=== PATIENT | male | born 1955 ===

== ENCOUNTER 2024-07-18 06:55 | Emergency (ER) | payer MEDICARE, SELFPAY ==
--- NOTE | ~2024-07-18 | XR_ITS ---
Clinical Indication: Chest pain, shortness of breath PA and lateral views of the chest: Comparison: None Findings: The lungs are clear, without evidence of focal consolidation or pleural effusion. Cardiome diastinal silhouette is within normal limits. Bones and soft tissues are unremarkable, aside from cer vical spine fixation hardware. Impression: Clear lungs. Reviewed, dictated and finalized at location . Impression: Clear lungs.
--- NOTE | 2024-07-18 06:57 | ECG_ITS ---
Test Date: 2024-07-18 09:42:47 Measurements Intervals [facility] Rate: 44 P: 37 MN: 172 QRS: 46 QRSD: 92 T: 40 QT: 440 QTc: 378 Interpretive Statements SINUS BRADYCARDIA OTHERWISE NORMAL ELECTROCARDIOGRAM Compared to ECG 07/18/2024 07:02:52 No significant changes Electronically Signed On 07-19-2024 07:19:26 CDT by Milton Finch M.D.
[2024-07-18 07:07] VITALS: BP 136/53; PULSE 52; RESP 15; TEMP 36.5; O2SAT 99
[2024-07-18 07:20] LABS: Basophils Percent Auto 0.5 % (0.2-1.2); Eosinophils Absolute Auto 0.3 K/mm3 (0-0.3); Eosinophils Percent Auto 3.8 % (0-4.4); Hematocrit 39.7 % (42.0-52.0); Hemoglobin 13.2 g/dL (14.0-18.0); Immature Granulocyte Absolute 0.03 K/mm3 (0.00-0.031); Immature Granulocyte Percent A 0.3 % (0-0.5); Lymphocytes Percent Auto 19.8 % (18.3-44.2); Mean Corpuscular HGB Conc 33.2 g/dl (32-36); Mean Corpuscular Hemoglobin 29.8 pg (26-34); Mean Corpuscular Volume 89.6 fl (80-100); Mean Platelet Volume 9.1 fl (7.4-10.4); Monocytes Absolute Auto 0.9 K/mm3 (0.1-0.6); Monocytes Percent Auto 10.1 % (2.6-8.5); Neutrophils Absolute Auto 5.6 K/mm3 (1.3-6.7); Neutrophils Percent Auto 65.5 % (45.5-73.1); Platelet Count Result 228 k/mm3 (150-375); Red Blood Count 4.43 M/mm3 (4.6-6.20); Red Cell Distribution Width 13.1 % (11.5-14.5); White Blood Count 8.6 K/mm3 (4.5-10.0)
[2024-07-18 07:31] LABS: Alanine Aminotransferase 13 U/L (6-50); Albumin Level 4.4 g/dL (3.5-5.1); Alkaline Phosphatase 56 U/L (38-126); Anion Gap 11 mmol/L (4-12); Aspartate Amino Transferase 21 U/L (17-59); Bilirubin,Total 0.9 mg/dL (0.2-1.3); Blood Urea Nitrogen 21 mg/dL (9-20); Calcium 9.1 mg/dL (8.4-10.2); Carbon Dioxide 31 mmol/L (22-30); Chloride 97 mmol/L (98-107); Estimated CRCL calculation 32 ml/min; Estimated Glomerular Filt Rate 47; Glucose 137 mg/dL (65-110); Lipase 107 U/L (23-300); Potassium 3.4 mmol/L (3.4-5.0); Sodium 139 mmol/L (137-145)
[2024-07-18 07:32] LABS: INR 1.1; Partial Thromboplastin Time 32.8 Seconds (22.3-36.8); Prothrombin Time 14.8 Seconds (11.1-14.7)
[2024-07-18 07:42] LABS: Troponin I < 0.012 ng/mL (0.000-0.034)
[2024-07-18] MEDS: ASPIRIN 81 MG CHEWABLE TABLET 324 MG PO (07:58)
[2024-07-18 08:32] VITALS: O2SAT 99
[2024-07-18 08:35] VITALS: BP 133/78; PULSE 55; RESP 13; TEMP 36.8; O2SAT 99
--- NOTE | 2024-07-18 08:38 | ED.CHESTPAIN ---
HPI - Chest Pain General Chief Complaint: Chest Pain Stated Complaint: chest pain Time Seen by Provider: 07/18/24 08:09 History of Present Illness HPI narrative: This is a 68-year-old male with a past medical history significant for hypertension who presents to the ED for evaluation of chest pain radiating to his back. Patient states that about 5:00 a.m. this morning when he has to do his normal activities in the morning he suddenly had some pain in his center of his chest that began radiating towards his back. Describes as a sharp pain but feels like the chest and back pain are in 2 separate locations. Pain did not immediately subsided and he wanted to be evaluated. Aside from feeling slightly dizzy with a sensation that he might pass out after this and chest pain was onset he denies any symptoms such as vision changes, headache, neck pain, nausea, vomiting, shortness of breath, abdominal pain, neuropathy or weakness. He was otherwise normal normal state of health without any changes to his medications or diet habits recently. No trauma associated with this and no recent illnesses. Related Data Allergies Allergy/AdvReac Type Severity Reaction Status Date / Time amlodipine Allergy Unknown flank pain Verified 07/18/24 08:42 atorvastatin [From Lipitor] Allergy flank pain Verified 07/18/24 08:42 Review of Systems Review of Systems: As reviewed above in the HPI [facility] Family History Family History Father Family history of anemia Cerebrovascular accident Family history of hearing loss Mother Family history of anemia Family history of arthritis Family history of Alzheimer's disease Family history of hearing loss Social History Social History Smoking status: Never smoker Alcohol intake: never Exam Narrative: GENERAL: [Well-appearing, well-nourished, and in no acute distress.] HEAD: [Normocephalic, atraumatic.] EYES: [PERRLA and EOMI.] ENT: Nares clear, no rhinorrhea or epistaxis. Mucous membranes moist. NECK: Supple. CHEST: [Clear to auscultation. No respiratory distress.] HEART: [Regular rate and rhythm]. No murmur heard. [Normal peripheral pulses.] ABDOMEN: [Soft, nondistended], [nontender], [No rigidity or guarding] EXTREMITIES: Normal range of motion. [No edema.] SKIN: Warm, dry, no rash. NEURO: [No focal deficits]. Alert and oriented [x3.] PSYCH: [Normal mood and affect.] Course Vital Signs Vital signs: Vital Signs Temperature 36.5 C 07/18/24 07:07 Pulse Rate 52 L 07/18/24 07:07 Respiratory Rate 15 07/18/24 07:07 Blood Pressure 136/53 L 07/18/24 07:07 Pulse Oximetry 99 07/18/24 07:07 Oxygen Delivery Room Air 07/18/24 07:07 Temperature 36.8 C 07/18/24 08:35 Pulse Rate 45 L 07/18/24 12:16 Respiratory Rate 16 07/18/24 12:16 Blood Pressure 118/59 L 07/18/24 12:16 Pulse Oximetry 100 07/18/24 12:16 Oxygen Delivery Room Air 07/18/24 08:32 MDM - Chest Pain MDM Narrative Medical decision making narrative: This is a 68-year-old male with history of hypertension who presents to the ED for evaluation of chest pain onset 3 hours prior to arrival. Chest pain was present upon awakening from sleep this morning and had some associated back discomfort as well. No associated difficulty breathing, nausea, vomiting, neuropathy or other complaints. Examination is very reassuring his well-appearing in any acute distress with symmetric pulses and normal neurological assessment. Differential diagnosis at this time includes musculoskeletal chest and back pain, less likely ACS or aortic syndrome. Low suspicion infectious etiology such as pneumonia or upper respiratory infection. Workup was ordered including serial troponins given the timeline of his events, CBC, chest x-ray, EKG, D-dimer to assess for any thrombotic process or aortic process. EKG o
[2024-07-18] MEDS: MORPHINE SULFATE (*CRX) 4 MG/ML INJ IV PUSH (09:23)
[2024-07-18] MEDS: LACTATED RINGERS 1,000 ML 999 ML IV CONT (09:25)
--- NOTE | 2024-07-18 09:41 | ECG_ITS ---
Test Date: 2024-07-18 07:02:52 Measurements Intervals [place] Rate: 51 P: 53 NV: 165 QRS: 38 QRSD: 93 T: 39 QT: 429 QTc: 397 Interpretive Statements SINUS BRADYCARDIA OTHERWISE ELECTROCARDIOGRAM No previous ECG available for comparison Electronically Signed On 07-19-2024 07:17:13 CDT by Milton Finch M.D.
[2024-07-18 10:01] VITALS: BP 145/66; PULSE 47; RESP 13; O2SAT 100
[2024-07-18 10:18] LABS: Troponin I < 0.012 ng/mL (0.000-0.034)
[2024-07-18 11:44] VITALS: BP 133/56; PULSE 47; RESP 16; O2SAT 97
[2024-07-18 12:16] VITALS: BP 118/59; PULSE 45; RESP 16; O2SAT 100
== END 2024-07-18 12:41 | disposition home or self-care (01) ==
PROVIDERS: Emergency Medicine; Emergency Provider Student in an Organized Health Care Education/Training Program
DX: R07.9 Chest pain, unspecified (principal)
CPT/HCPCS: 36415; 71046; 80053; 83690; 84484; 85025; 85380; 85610; 85730; 93005; 96361; 96374; 99284; A9270; J2270; J7120